=== PATIENT | male | born 1935 | race Caucasian/White ===

== ENCOUNTER 2022-02-28 22:09 | Emergency (ER) | payer OTHER ==
[~2022-02-28] VITALS: Ht 167.6 cm; Wt 65.8 kg
== END 2022-03-01 03:10 | disposition home or self-care (01) ==
LOC: ER1 22:09
DX: U07.1 COVID-19 (principal); Z88.0 Allergy status to penicillin
CPT/HCPCS: 71045; 99284; M0222